=== PATIENT | female | born 1950 | race Hispanic/Latino ===

== ENCOUNTER 2025-03-15 14:15 | Emergency (ER) | payer SELFPAY ==
[~2025-03-15] VITALS: Ht 149.9 cm; Wt 70.8 kg
--- NOTE | 2025-03-15 14:36 | ERN ---
ED Note History of Present Illness Stated Complaint: MULTIPLE COMPLAINTS Chief Complaint: Cough Time Seen by MD: 14:21 Dictation: Patient is a 74-year-old female here with her daughter with complaints of body aches fever chills and a nonproductive cough she has had for several days. No loss of taste or smell no nausea no vomiting. She has had diarrhea. Daughter states she has no primary care doctor and used to go to the [facility]. She has no insurance so now she is dependent on emergency rooms for her health care. Allergies: Coded Allergies: No Known Drug Allergies (Unverified Allergy, Unknown, 03/15/25) Past Medical History Past Medical History: Diabetes-Type II, High Cholesterol, Hypertension Surgical History: Hysterectomy, History: Not Applicable RN Note Reviewed/Agreed w/PFSH: Yes Review of System Dictation CONSTITUTIONAL: Negative except for HPI fever with generalized body weakness HEAD/FACE: Negative except for HPI EENT: Negative except for HPI RESPIRATORY: Negative except for HPI shortness a breath/cough GASTROINTESTINAL/ABDOMINAL: Negative except for HPI GENITOURINARY: Negative except for HPI MUSCULOSKELETAL: Negative except for HPI INTEGUMENTARY: Negative except for HPI NEUROLOGICAL/PSYCH: Negative except for HPI HEMATOLOGIC/LYMPHATIC: Negative except for HPI All Systems Negative, Except as noted above. 13 point review of systems assessed and all negative except for above. Initial Vital Sign VS Vital Signs Date Time Temp Pulse Resp B/P (MAP) Pulse Ox O2 Delivery O2 Flow Rate FiO2 03/15/25 14:20 100.2 86 22 128/74 98 Room Air 0 03/15/25 14:24 21 Physical Exam Dictation Vital Signs reviewed General Appearance: Alert, oriented x 3, mild acute distress, well developed, nourished. Head and Face: non-traumatic. Eyes: PERRL, pink conjunctivas, eyelid no trauma, anterior chamber with arcus senilis. Ears: Pinnas intact and no signs of trauma or erythema ear canals clear and no discharge TM no erythema Nose: No discharge, no bleeding. Oropharynx: Mouth normal, tongue pink, pharynx clear,no erythema, tonsils no exudates, no abscesses noted, mucous membrane moist Neck: Supple, non-tender, no thyromegaly, no masses, no JVD, no bruits Breast:Deferred Chest:No tenderness, no crepitus, no paradoxical movement, no retractions Lungs:Clear, well-ventilated, symmetric, no rales, no wheezing, no rhonchi, no stridor, good breath sounds bilaterally Heart: Regular rate, regular rhythm, no murmur, no gallops Vascular: no peripheral edema, Abdomen: Soft, positive bowel sounds, nondistended, no guarding, nontender, no rebound, no masses no hepatomegaly, no splenomegaly, no Stuart's sign, no hernias. Rectal: Deferred Genital: Deferred Neurological: Normal speech, motor function intact, sensory function intact Musculoskeletal: Neck nontender, full range of motion, back nontender, full range of motion, Extremities: nontender, full range of motion Skin: Color pink, dry, no turgor, no rash, no lacerations, no abrasions, no contusions. Lymphatic: Deferred Results (Laboratory/Radiology) Laboratory/Radiology Laboratory Tests Test 03/15/25 14:35 03/15/25 15:20 White Blood Count 4.0 K/uL (4.8-10.8) L Red Blood Count 3.38 MIL/uL (4.00-5.50) L Hemoglobin 10.6 g/dL (12.0-16.0) L Hematocrit 31.8 % (36-48) L Mean Corpuscular Volume 94.1 fL (79-99) Mean Corpuscular Hemoglobin 31.4 pg (27.0-33.0) Mean Corpuscular Hemoglobin Concent 33.3 g/dL (32.0-36.0) Red Cell Distribution Width 12.4 % (11.0-15.5) Platelet Count 196 K/uL (130-400) Mean Platelet Volume 10.0 fL (7.5-10.5) Immature Granulocyte % (Auto) 0.3 % (0-1) Neutrophils (%) (Auto) 60.8 % (40.0-77.0) Lymphocytes (%) (Auto) 29.3 % (21.0-51.0) Monocytes (%) (Auto) 7.3 % (3.0-13.0) Eosinophils (%) (Auto) 1.5 % (0.0-8.0) Basophils (%) (Auto) 0.8 % (0.0-5.0) Neutrophils # (Auto) 2.4 K/uL (1.8-7.7) Lymphocytes # (Auto) 1.2 K/uL (1.0-4.8) Monocytes # (Auto) 0.3 K/uL (0.1-1.0) Eosinophils # (Auto) 0.06 K/uL (0.00-0.70) Basophils # (Auto) 0.03 K/uL (0.00-0.20) Absolute Immature Granulocyte (auto 0.01 K/uL (0-1) Nucleated Red Blood Cells 0.0 % (0.0-0.19) Sodium Level 132 mmol/L (136-145) L Potassium Level 4.4 mmol/L (3.5-5.1) Chloride Level 100 mmol/L (101-111) L Carbon Dioxide Level 23 mmol/L (21-32) Blood Urea Nitrogen 15 mg/dL (7-18) Creatinine 1.0 mg/dL (0.5-1.0) Glomerular Filtration Rate Calc 59 mL/min (>90) Random Glucose 176 mg/dL (70-105) H Lactic Acid Level 2.5 mmol/L (0.8-2.5) Total Calcium 9.0 mg/dL (8.5-10.1) Troponin I High Sensitivity 4 ng/L (4-50) B-Type Natriuretic Peptide 97 pg/mL (0-100) Influenza Type A Antigen Negative For Type A Influenza Type B Antigen Negative For Type B SARS-CoV-2 Antigen (Rapid) PRESUMPTIVE NEGATIVE Urine Color YELLOW (YELLOW) Urine Appearance HAZY (CLEAR) Urine pH 5.5 (5.0-8.0) Urine Specific [place] 1.016 (1.001-1.031) Urine Protein 10 mg/dL (NEGATIVE) H Urine Glucose (UA) NEGATIVE mg/dL (NEGATIVE) Urine Ketones NEGATIVE mg/dL (NEGATIVE) Urine Occult Blood NEGATIVE (NEGATIVE) Urine Nitrate NEGATIVE (NEGATIVE) Urine Bilirubin NEGATIVE mg/dL (NEGATIVE) Urine Urobilinogen 0.2 mg/dL (0.2-1.0) Urine Leukocyte Esterase 250 Aisha/uL (NEGATIVE) H Urine RBC 0-1 /HPF (0-1) Urine WBC 11-25 /HPF (0-1) H Urine Squamous Epithelial Cells FEW /HPF (0-2) Urine Bacteria RARE /HPF (None Seen) Accession No. 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 [place], [place] [id number] IMAGING REPORT Signed PATIENT: SHABBIR FRYE MR#: [id number] : 1950 SEX: F AGE: 74 LOCATION: [facility] ORDER 1432 STATUS: REG ER REPORT#: [id number] SERVICE 1429 REASON: SOB/COUGH ORDERING PHYSICIAN: RADHA DEXTER NP PROCEDURE: CXR1VW - CHEST 1VW EXAM: CR Chest, 1 View. CLINICAL HISTORY: SOB/COUGH COMPARISON: None provided. FINDINGS: LUNGS: The lungs show no infiltrate or other acute finding. PLEURAL SPACES: No pleural effusion or pneumothorax. MEDIASTINUM: The cardiomediastinal silhouette is within normal limits. BONES: No aggressive appearing osseous lesion seen. IMPRESSION: No acute cardiopulmonary pathology is evident. /[place] EKG Comment: EKG sinus rhythm/heart rate 84/axis normal nonspecific changes V4 V5 V6 ED Course ED Course Orders Procedure Category Date Status Time Covid19 (Sars Antigen LAB 03/15/25 Complete Rapid) 14:29 Influenza Type A & B, LAB 03/15/25 Complete Rapid 14:29 Cbc With Differential LAB 03/15/25 Complete 14: Blood Cult RAÚL 03/15/25 In Process 14:29 Urinalysis Profile LAB 03/15/25 Complete 14:29 Troponin I High LAB 03/15/25 Complete Sensitivity 14:29 Lactic Acid LAB 03/15/25 Complete 14:29 Basic Metabolic Panel LAB 03/15/25 Complete 14:29 Chest 1vw RAD 03/15/25 Resulted 14:29 B-Type Natriuretic LAB 03/15/25 Complete Peptide 14:29 Albuterol 0.083% PHA 03/15/25 Complete 2.5mg/3ml (Proventil 14:30 Acetaminophen 500mg PHA 03/15/25 Complete Tab (Tylenol 500mg T 15:00 12 Lead Ekg Tracing- EKG 03/15/25 Complete Technical 14:44 0.9%Nacl 1000ml (Ns PHA 03/15/25 Complete 1000ml) 15:30 Ceftriaxone 2gm Vial PHA 03/15/25 Complete (Rocephin 2gm Inj) 15:14 Culture Urine RAÚL 03/15/25 In Process 15:45 Current Medications Medications (Trade) Dose Ordered Sig/Owen Route PRN Reason Start Time Stop Time Status Last Admin Dose Admin Acetaminophen (TYLenol 500MG TAB) 1,000 mg ONCE ONCE PO 03/15/25 15:00 03/15/25 15:01 DC 03/15/25 15:15 Albuterol Sulfate (Proventil 0.083% 2.5mg/3ml) 2.5MG ONCE ONCE IH 03/15/25 14:30 03/15/25 14:34 DC 03/15/25 15:01 Ceftriaxone Sodium (Rocephin 2gm Inj) 2 gm ONCE STAT IVPB 03/15/25 15:14 03/15/25 15:17 DC 03/15/25 15:42 Sodium Chloride 1,000 ml @ 0 mls/hr ONCE ONCE IV 03/15/25 15:30 03/15/25 15:31 DC 03/15/25 15:42 Vital Signs Date Time Temp Pulse Resp B/P (MAP) Pulse Ox O2 Delivery O2 Flow Rate FiO2 03/15/25 16:14 100.6 88 20 113/60 98 Room Air* 0 03/15/25 15:01 86 20 03/15/25 14:45 100.2 92 20 145/79 98 Room Air* 0 03/15/25 14:24 100.2 86 22 128/74 98 Room Air* 0 21 03/15/25 14:20 100.2 86 22 128/74 98 Room Air 0 1650/patient hemodynamically stable . , white count is 4. Lactic acid not due to sepsis. We will discharge patient home with treatment for urinary tract in and diabetes we will have her follow up with the doctor we will give her a list of doctors on staff. Daughter at bedside and all questions answered Family is aware there is no pulmonary disease going on Medical Decision Making MDM MDM: Differential diagnosis: Pneumonia/bronchitis/urinary tract infection/electrolyte imbalance dehydration/influenza/COVID/strep Rationale: Tests considered and ordered secondary to shared decision making include: Radiology/labs/urine Previous outside records reviewed: Old ER visits. Risk of complication and/or morbidity or mortality of patient management: None Medications-Per medication reconciliation Need for hospitalization: Patient does not meet criteria for hospitalization. No Need for emergency major/minor surgery: No There are no social concerns with this patient. Prescription drug management Augmentin/metformin Prescriptions will include symptomatic care Patient's prior external medical records from other ER visits were reviewed by me as indicated. Prior testing and results from previous visits were reviewed. Prior tests were taken into account with medical decision making and resource utilization, independent historian/historians were used to obtain complete medical history. I independently interpreted the test that were performed, results were reviewed by me and considered findings on radiology if ordered. Medical management and examination interpretation discussions were had by me with other qualified healthcare professionals as indicated for the patient's care. DX & DISP Disposition: Discharge Departure Impression: Primary Impression: Urinary tract infection Additional Impressions: Uncontrolled diabetes mellitus, Elevated lactic acid level Condition: Stable Scripts Metformin HCl (Metformin HCl) 1,000 Mg Tablet 1000 MG PO BID, #60 TAB Prov: RADHA DEXTER NP 03/15/25 Amoxicillin/Potassium Clav (Amox Tr-K Clv 875-125 mg Tab) 875 Mg-125 Mg Tablet 1 EACH PO BID for 7 Days, #14 TAB 0 Refills Prov: RADHA DEXTER NP 03/15/25 Additional Instructions: Follow-up with primary care provider in 1 to 2 days. Take medications as directed here in the emergency room. Okay to continue home medications unless otherwise discussed during your visit in the emergency room today. Return to your nearest emergency room if symptoms worsen or if there is no improvement. Call 911 if you need immediate assistance. Take Tylenol or Motrin [id number] as needed and if no contraindications are present. Increase oral hydration. A wound culture or urine culture was ordered here in the emergency room department please follow-up with primary care provider and advise them to get repeat ports from our facility. If you had any Emil wrap/splints that were applied here, please do not remove them until you see your primary care or specialty. Take antibiotics as directed until gone. Take metformin twice a day with meals for your diabetes. Follow up with one of the doctors on the list provided you an established herself with a doctor for management of your diabetes and other comorbidities. Increase water intake. Referrals: SELF,REFERRAL (PCP) Time of Disposition: 16:51 I have reviewed the case, and I agree with, Diagnosis and Plan RADHA DEXTER NP Mar 15, 2025 14:36
--- NOTE | 2025-03-15 14:53 | EKG ---
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
[2025-03-15 15:00] LABS: IMMATURE GRANULOCYTE ABSOLUTE 0.01 K/uL (0-1); NUCLEATED RED BLOOD CELLS 0.0 % (0.0-0.19); PLATELET COUNT (AUTO) 196 K/uL (130-400); RED BLOOD CELL COUNT(AUTO) 3.38 MIL/uL (4.00-5.50); RED CELL DISTRIBUTION WIDTH 12.4 % (11.0-15.5); WHITE BLOOD COUNT (AUTO) 4.0 K/uL (4.8-10.8)
[2025-03-15 15:01] VITALS: PULSE 86; RESP 20
[2025-03-15] MEDS: ALBUTEROL 0.083% 2.5 MG/3 ML INH IH ONE (15:01)
[2025-03-15 15:09] LABS: CREATININE 1.0 mg/dL (0.5-1.0); GLOMERULAR FILTR. RATE CALC 59.0 mL/min (>90); GLUCOSE,RANDOM 176.0 mg/dL (70-105); SODIUM SERUM 132.0 mmol/L (136-145); UREA NITROGEN, BLOOD 15.0 mg/dL (7-18)
--- NOTE | 2025-03-15 15:10 | HMCIMG ---
EXAM: CR Chest, 1 View. CLINICAL HISTORY: SOB/COUGH COMPARISON: None provided. FINDINGS: LUNGS: The lungs show no infiltrate or other acute finding. PLEURAL SPACES: No pleural effusion or pneumothorax. MEDIASTINUM: The cardiomediastinal silhouette is within normal limits. BONES: No aggressive appearing osseous lesion seen. IMPRESSION: No acute cardiopulmonary pathology is evident. /[place]
[2025-03-15 15:17] LABS: COVID19 (SARS ANTIGEN RAPID) PRESUMPTIVE NEGATIVE (NEGATIVE); INFLUENZA TYPE A Negative For Type A (NEGATIVE); INFLUENZA TYPE B Negative For Type B (NEGATIVE)
[2025-03-15] MEDS: 0.9%NACL 1000ML 1,000 ML IV ONE (15:42)
[2025-03-15 15:44] LABS: ADD UA MICROSCOPIC YES; APPEARANCE,URINE HAZY (CLEAR); GLUCOSE, URINE (UA) NEGATIVE (NEGATIVE); LEUKOCYTE ESTERASE ,URINE 250 Leu/uL (NEGATIVE); NITRATE,URINE NEGATIVE (NEGATIVE); OCCULT BLOOD,URINE NEGATIVE (NEGATIVE)
[2025-03-15 15:47] LABS: SQUAMOUS EPITHELIAL CELL,UR FEW /HPF (0-2)
[2025-03-15] MEDS ORDERED: METF-446 PO (16:52)
[2025-03-15] MEDS ORDERED: AMOX1TAB16 PO (16:52)
[2025-03-15 17:00] VITALS: BP 112/52; PULSE 79; RESP 18; TEMP 100; O2SAT 99
== END 2025-03-15 17:08 | disposition home or self-care (01) ==
LOC: EDH 14:15
DX: N39.0 Urinary tract infection, site not specified (principal); E11.65 Type 2 diabetes mellitus with hyperglycemia; R74.02 Elevation of levels of lactic acid dehydrogenase [LDH]; R05.9 Cough, unspecified; E78.00 Pure hypercholesterolemia, unspecified; I10 Essential (primary) hypertension; Z20.822 Contact with and (suspected) exposure to COVID-19; Z90.710 Acquired absence of both cervix and uterus; Z79.84 Long term (current) use of oral hypoglycemic drugs; Z98.890 Other specified postprocedural states
CPT/HCPCS: 99285; 96374; 71045; 87426; 84484; 80048; 83880; 85025; 87040 ×2; 87086; 87804 ×2; 83605; 81001; 36415; 93005; 94640; J7030; J0696